=== PATIENT | female | born 1995 | race Two or more races ===

== ENCOUNTER 2024-09-01 08:10 | Outpatient (CLI) | payer OTHER | END 2024-09-01 08:11 | disposition home or self-care (01) | LOC: PRENATAL 08:10 | PROVIDERS: ATTEND Obstetrics & Gynecology Maternal & Fetal Medicine | DX: O36.80X0 Pregnancy with inconclusive fetal viability, not applicable or unspecified (principal); Z36.82 Encounter for antenatal screening for nuchal translucency; Z14.8 Genetic carrier of other disease; Z3A.14 14 weeks gestation of pregnancy ==

== ENCOUNTER → 2024-10-14 | Outpatient (CLI) | payer OTHER | END | disposition home or self-care (01) | LOC: PRENATAL 12:24 | PROVIDERS: ATTEND Obstetrics & Gynecology Maternal & Fetal Medicine | DX: O44.00 Complete placenta previa NOS or without hemorrhage, unspecified trimester (principal); Z3A.21 21 weeks gestation of pregnancy ==

== ENCOUNTER 2024-11-30 14:24 | Outpatient (CLI) | payer OTHER ==
[~2024-11-30] VITALS: Ht 172.7 cm; Wt 74.4 kg
[2024-11-30 14:09] VITALS: BP 107/69
[2024-11-30] MEDS ORDERED: PRENATAL TABLE1 EAC4 PO (14:41)
[2024-11-30] MEDS ORDERED: RINGERS SOLUTION,LACTATED 1,000 ML IV SCH (14:45)
[2024-11-30 15:06] LABS: PH,URINE 6.5 (5.0-8.0); URINE APPEARANCE Clear; URINE BILIRRUBIN Negative (NEGATIVE); URINE BLOOD Negative; URINE COLOR Yellow; URINE GLUCOSE Negative (NEGATIVE); URINE KETONE Negative (NEGATIVE); URINE LEUKOCYTE Moderate; URINE NITRATE Negative; URINE PROTEIN Negative (NEGATIVE)
[2024-11-30 15:13] LABS: URINE BACTERIA 5405.1 uL (0.0-1933); URINE EPITHELIAL CELLS 51.9 uL (0.0-38.8); URINE RBC 11.4 uL (0.0-20.8); URINE WBC 152.7 uL (0.0-23.2)
[2024-11-30 15:24] VITALS: BP 106/69
[2024-11-30 15:41] LABS: HEMATOCRIT 34.7 % (36.0-45.00); HEMOGLOBIN 11.9 g/dL (12.0-15.00); MEAN CELL VOLUME 92.7 fL (80.00-100.00); MEAN CORPUSCULAR HEMOGLOBIN 31.9 pg (27.00-32.0); MEAN CORPUSCULAR HGB CONC 34.4 g/dl (32.0-36.0); PLATELET COUNT 196 K/uL (150-450); RED BLOOD COUNT 3.74 M/uL (4.00-6.00); RED CELL DISTRIBUTION WIDTH 14.1 % (11.5-14.5)
[2024-11-30 16:02] LABS: URINE CAST 0.14 uL (0.0-1.40)
[2024-11-30 19:55] VITALS: BP 105/70
[2024-11-30 23:26] VITALS: BP 98/62
[2024-12-01 04:39] VITALS: BP 100/66
[2024-12-01 06:06] VITALS: BP 106/62; O2SAT 100
[2024-12-01 08:48] VITALS: BP 106/62
== END 2024-12-01 08:58 | disposition home or self-care (01) ==
LOC: OBS/DEL 14:24
PROVIDERS: ATTEND Obstetrics & Gynecology
DX: O60.02 Preterm labor without delivery, second trimester (principal); O26.849 Uterine size-date discrepancy, unspecified trimester; O36.8199 Decreased fetal movements, unspecified trimester, other fetus; Z3A.27 27 weeks gestation of pregnancy

== ENCOUNTER 2025-01-06 15:43 | Outpatient (CLI) | payer OTHER ==
[~2025-01-06] VITALS: Ht 172.7 cm; Wt 80.7 kg
[2025-01-06 15:36] VITALS: BP 102/57
[~2025-01-06 15:43] MED LIST: PRENATAL TABLE1 EAC4 PO
[2025-01-06] MEDS ORDERED: RINGERS SOLUTION,LACTATED 1,000 ML IV SCH (16:15)
[2025-01-06] MEDS ORDERED: ACETAMINOPHEN 500 MG GEL..CAP PO ONE (16:30)
[2025-01-06 16:35] LABS: URINE APPEARANCE Cloudy; URINE BILIRRUBIN Negative (NEGATIVE); URINE BLOOD Negative; URINE COLOR Yellow; URINE GLUCOSE Negative (NEGATIVE); URINE LEUKOCYTE Moderate; URINE NITRATE Negative; URINE PROTEIN Trace (NEGATIVE)
[2025-01-06 16:35] LABS: HEMOGLOBIN 11.5 g/dL (12.0-15.00); MEAN CELL VOLUME 93.5 fL (80.00-100.00); MEAN CORPUSCULAR HEMOGLOBIN 31.8 pg (27.00-32.0); PLATELET COUNT 166 K/uL (150-450); RED BLOOD COUNT 3.63 M/uL (4.00-6.00); RED CELL DISTRIBUTION WIDTH 14.3 % (11.5-14.5)
[2025-01-06 16:38] LABS: URINE EPITHELIAL CELLS 116.8 uL (0.0-38.8); URINE RBC 4.7 uL (0.0-20.8); URINE WBC 166.5 uL (0.0-23.2)
[2025-01-06 17:30] LABS: URINE BACTERIA > 9821.5 uL (0.0-1933); URINE CAST 0.29 uL (0.0-1.40); URINE KETONE 80 (NEGATIVE)
[2025-01-06 20:29] VITALS: BP 102/57
== END 2025-01-06 20:29 | disposition left against medical advice (07) ==
LOC: EDBD 15:43 → OBS/DEL 15:43
PROVIDERS: ATTEND Obstetrics & Gynecology
DX: O26.893 Other specified pregnancy related conditions, third trimester (principal); R51.9 Headache, unspecified; Z3A.33 33 weeks gestation of pregnancy

== ENCOUNTER 2025-02-20 02:49 | Inpatient (IN) | payer OTHER ==
[~2025-02-20] VITALS: Ht 172.7 cm; Wt 71.7 kg
[2025-02-20 01:49] VITALS: BP 105/68
[2025-02-20] MEDS ORDERED: RINGERS SOLUTION,LACTATED 1,000 ML IV SCH ×2 (03:00→22:00)
[2025-02-20] MEDS ORDERED: AMPICILLIN SODIUM 2,000 MG VIAL IV ONE (03:00)
[2025-02-20 04:12] LABS: HEMATOCRIT 39.4 % (36.0-45.00); HEMOGLOBIN 13.6 g/dL (12.0-15.00); MEAN CELL VOLUME 93.5 fL (80.00-100.00); MEAN CORPUSCULAR HEMOGLOBIN 32.3 pg (27.00-32.0); MEAN CORPUSCULAR HGB CONC 34.6 g/dl (32.0-36.0); PH,URINE 6.5 (5.0-8.0); PLATELET COUNT 172 K/uL (150-450); RED BLOOD COUNT 4.22 M/uL (4.00-6.00); RED CELL DISTRIBUTION WIDTH 13.8 % (11.5-14.5); URINE APPEARANCE Clear; URINE BILIRRUBIN Negative (NEGATIVE); URINE BLOOD NHT; URINE COLOR Dark Yellow; URINE GLUCOSE Negative (NEGATIVE); URINE KETONE Trace (NEGATIVE); URINE LEUKOCYTE Small; URINE NITRATE Negative; URINE PROTEIN 30 (NEGATIVE)
[2025-02-20 04:16] LABS: URINE BACTERIA 2879.9 uL (0.0-1933); URINE EPITHELIAL CELLS 54.6 uL (0.0-38.8); URINE RBC 60.8 uL (0.0-20.8); URINE WBC 86.1 uL (0.0-23.2)
[2025-02-20 04:38] LABS: INR < 0.93; PARTIAL THROMBOPLASTIN TIME 28.2 SECONDS (22.0-34.0); PROTHROMBIN TIME 10.1 SECONDS (9.0-11.5)
[2025-02-20 04:39] LABS: URINE CAST 0.14 uL (0.0-1.40)
[2025-02-20 04:43] LABS: BILIRUBIN TOTAL 0.3 mg/dL (0.3-1.2); CALCIUM 9.5 mg/dL (8.5-10.1); CREATININE SERUM 0.8 mg/dL (0.55-1.02); GFR 83.12; POTASSIUM 4.25 mEq/L (3.5-5.1)
[2025-02-20 07:21] VITALS: BP 102/63
[2025-02-20] MEDS ORDERED: AMPICILLIN SODIUM 1,000 MG VIAL IV SCH (08:00)
[2025-02-20] MEDS ORDERED: MISOPROSTOL 25 MCG/4 ML GEL.W.APPL ONE (08:06)
[2025-02-20] MEDS ORDERED: MISOPROSTOL 25 MCG/4 ML GEL.W.APPL VAG STA (08:12)
[2025-02-20 11:20] VITALS: BP 116/64
[2025-02-20] MEDS ORDERED: OXYTOCIN 500 ML IV SCH (13:30)
[2025-02-20] MEDS ORDERED: MORPHINE SULFATE 4 MG/ML VIAL IV STA (14:01)
[2025-02-20 14:06] VITALS: BP 131/68
[2025-02-20 15:26] VITALS: BP 111/60
[2025-02-20] MEDS ORDERED: CEFAZOLIN SODIUM 1,000 MG VIAL IV SCH (16:45)
[2025-02-20] MEDS ORDERED: CEFAZOLIN SODIUM 1,000 MG VIAL ONE (18:07)
[2025-02-20] MEDS ORDERED: ERYTHROMYCIN BASE OPHT 1GM EACH TUBE OP ONE (18:08)
[2025-02-20] MEDS ORDERED: OXYTOCIN 10 UNITS/ML VIAL ONE ×2 (18:08→21:50)
[2025-02-20] MEDS ORDERED: SIMETHICONE 125 MG CAPSULE PO SCH (21:00)
[2025-02-20] MEDS ORDERED: MORPHINE SULFATE 4 MG/ML VIAL IV ONE ×2 (21:05→21:35)
[2025-02-20] MEDS ORDERED: OXYTOCIN 1,000 ML IV SCH (22:00)
[2025-02-21] MEDS ORDERED: OXYTOCIN 10 UNITS/ML VIAL ONE (00:19)
[2025-02-21 01:05] VITALS: BP 112/69
[2025-02-21 01:46] LABS: HEMATOCRIT 37.6 % (36.0-45.00); HEMOGLOBIN 12.7 g/dL (12.0-15.00); MEAN CORPUSCULAR HEMOGLOBIN 31.5 pg (27.00-32.0); MEAN CORPUSCULAR HGB CONC 33.9 g/dl (32.0-36.0); PLATELET COUNT 152 K/uL (150-450); RED BLOOD COUNT 4.04 M/uL (4.00-6.00); RED CELL DISTRIBUTION WIDTH 13.6 % (11.5-14.5)
[2025-02-21 05:00] VITALS: BP 98/59
[2025-02-21] MEDS ORDERED: IBUprofen 400 MG TABLET PO SCH (09:00)
[2025-02-21] MEDS ORDERED: IBUprofen 800 MG TABLET PO SCH (09:00)
[2025-02-21] MEDS ORDERED: DOCUSATE SODIUM 100MG CAP PO SCH (09:00)
[2025-02-21 12:28] VITALS: BP 105/64
[2025-02-21 16:00] VITALS: BP 106/61
[2025-02-22 00:11] VITALS: BP 110/70
[2025-02-22 08:00] VITALS: BP 118/71
[2025-02-23] VITALS: BP 119/70; O2SAT 96
== END 2025-02-23 14:56 | disposition home or self-care (01) | DRG 788 ==
LOC: OB/GYN 02:49 → EDBD 02:49 → LDR 02:49 → O/R 19:34 → OB/GYN 20:22
PROVIDERS: Obstetrics & Gynecology; ADMIT Obstetrics & Gynecology; ATTEND Obstetrics & Gynecology
PROC: 4A1HXCZ Monitoring of Products of Conception, Cardiac Rate, External Approach (ICD-10-PCS; 2025-02-20)
PROC: 10D00Z1 Extraction of Products of Conception, Low, Open Approach (ICD-10-PCS; principal; 2025-02-20 18:15)
DX: O64.0XX0 Obstructed labor due to incomplete rotation of fetal head, not applicable or unspecified (principal); Z3A.39 39 weeks gestation of pregnancy; Z37.0 Single live birth